=== PATIENT | female | born 1945 | race Caucasian/White ===

== ENCOUNTER 2016-08-02 18:45 | Emergency (ER) | payer OTHER ==
[2016-08-02] MEDS ORDERED: DUONEB (A & A) INH ONE (18:49)
[2016-08-02] MEDS ORDERED: ZOFRAN ODT PO ONE (18:50)
--- NOTE | 2016-08-02 18:54 | PROVIDER DOCUMENTATION ---
HPI-Respiratory General - General Chief Complaint: Choking Stated Complaint: CHOKING Time Seen by Provider: 08/02/16 18:45 Source: patient, EMS Allergies/Adverse Reactions: Patient Allergies Allergy/AdvReac Type Severity Reaction Status Date / Time No Known Allergies Allergy Verified 08/02/16 18:49 Home Medications: Home Medication List Medication Instructions Recorded Confirmed Last Taken Type ATORVAstatin [Lipitor] 10 mg PO DAILY 11/17/12 08/02/16 08/02/16 History Aspirin 81 mg PO DAILY 11/17/12 08/02/16 08/02/16 History Diltiazem C.d. [Cardizem Cd] 240 mg PO DAILY 11/17/12 08/02/16 08/02/16 History Duloxetine [Cymbalta] 30 mg PO DAILY 11/17/12 08/02/16 08/02/16 History Levothyroxine [Synthroid] 25 microgm PO DAILY 11/17/12 08/02/16 08/02/16 History Divalproex [Depakote Sprinkle] 250 mg PO TID #0 capsule 08/04/13 08/02/16 Rx Hydrocodone/APAP 5 mg/325 mg 1 each PO Q6H PRN PRN #0 tablet 08/04/13 08/02/16 08/02/16 Rx [Brick-5] Clonazepam [Klonopin] 0.5 mg PO TID 05/11/16 08/02/16 08/02/16 History Cyclobenzaprine [Flexeril] 5 mg PO TID 05/11/16 08/02/16 08/02/16 History Guaifenesin/Codeine Phosphate 10 ml PO Q4HR PRN #120 liquid 05/11/16 08/02/16 Rx [Cheratussin AC Syrup] Levofloxacin [Levaquin] 750 mg PO DAILY #7 tablet 05/11/16 08/02/16 08/02/16 Rx Mirtazapine 15 mg PO PRN PRN 05/11/16 08/02/16 08/02/16 History - History of Present Illness-Resp Nature of Presenting Problem: Pt is a 71 yof who 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 EMS reports that pt was eating a barbeque sandwich and started choking. EMS reports that they were able to get the patient to cough up some food particles and did not have to do any suction. Pt has hx of HTN, stroke, and dementia and was mildly altered, but EMS reports is her baseline. On exam, pt was A/Ox3 and complains of trouble on deep inspiration and a sore chest from family/firefighters attempting to dislodge the food. On exam, pt was in mild distress, but was not choking and was able to drink 2 ounces of water without choking. Quality of Pain: reports: aching Severity in ED: reports: moderate Onset/Duration: reports: just prior to arrival Timing: reports: improving Context: reports: aspiration/choking Cough Quality/Degree: reports: severe Episode Frequency: rare episodes Associated Symptoms: reports: chest pain/soreness, cough, hurts to breathe, shortness of breath, short of breath, wheezing. denies: dizziness, earache, facial pain, fever/chills, flu-like symptoms, headache, heart racing, hyperventilating, lightheadedness, muscle/bodyaches, nasal congestion, nasal drainage, sinus pain, sore throat, sweaty Review of Systems - Adult - REVIEW OF SYSTEMS - ADULT Constitutional: denies: chills, fever, fatique, night sweats, weight gain, weight loss Eyes: reports: no symptoms reported Ears, Nose, Mouth & Throat: denies: epistaxis, sinus problem, mouth swelling, hoarseness, throat pain, throat swelling Cardiovascular: reports: chest pain. denies: edema, heart murmur, irregular heart rate, orthopnea, palpitations, poor circulation, PND, syncope Respiratory: reports: cough, dyspnea on exertion. denies: chronic cough, excessive sputum production, hemoptysis, pleurisy, shortness of breath, wheezing Gastrointestinal: reports: difficulty swallowing. denies: abdominal pain, hematemesis, constipation, diarrhea, frequent heartburn, nausea, poor appetite, rectal bleeding, vomiting Genitourinary: reports: no symptoms reported Musculoskeletal: reports: muscle aches (anterior chest wall tender). denies: bone pain, back pain, frequent leg cramps, joint pain, joint swelling, muscle weakness, neck pain Integumentary: reports: no symptoms reported Neurological: reports: no symptoms reported Psychiatric: reports: no symptoms reported Endocrine: reports: no symptoms reported Hematologic/Lymphatic: reports: no symptoms reported Allergic/Immunologic: reports: no symptoms reported All Other Systems: Reviewed and Negative Past History - Adult - PAST MEDICAL HISTORY-ADULT Review of Records: reports: Nursing Assessment Review, Medications Reviewed - IMMUNIZATION STATUS Childhood Immunizations: See Nurse Assessment Flu Vaccine: See Nurse Assessment Physical Exam-General - PHYSICAL EXAM-ADULT Initial Vital Signs Reviewed: Yes - CONSTITUTIONAL General Appearance: appears well, alert, mild distress, lethargic, slow to respond. negative: no apparent distress, moderate distress, severe distress, cachetic, obese, thin, anxious, obtunded, combative - HEAD, EARS, NOSE, MOUTH & THROAT HENMT: normocephalic/atraumatic, moist mucous membranes, normal ENT inspection, pharyngeal erythema, other (no foreign body in throat). negative: tonsillar exudate, TM abnormal - NECK Neck: non-tender, full range of motion, supple. negative: limited range of motion - RESPIRATORY Respiratory: lungs clear, decreased breath sounds (mild LLL). negative: chest non-tender, normal breath sounds, respiratory distress, wheezing - CARDIOVASCULAR Cardiovascular: normal peripheral pulses, regular rate, rhythm. negative: bradycardia, tachycardia, irregularly irregular - CHEST (BREASTS) Chest/Breast: no masses/lumps, tenderness (L Anterior chest wall tender on palpation). negative: no tenderness - GASTROINTESTINAL (ABDOMEN) Abdominal Exam: normal bowel sounds, non tender, soft. negative: abnormal bowel sounds, distended, tenderness, mass - NEUROLOGIC Neurologic: grossly normal, no motor/sensory deficits. negative: focal weakness , motor weakness, sensory deficit - PSYCHIATRIC Psych/Mental Status: normal mood/affect, normal thought content, normal thought process, oriented x 3, depressed affect (baseline) Progress - PLAN OF CARE/RESULTS Progress/Plan/Lab Results: POC: EKG/Chest X-ray/labs Vital Signs - 24 hr 08/02/16 18:45 Temperature 97.9 F Pulse Rate 92 H Respiratory 19 Rate Blood Pressure 118/67 O2 Sat by Pulse 98 Oximetry Orders Category Date Time Status CHEST-2 VIEWS [RAD] Stat Exams 08/02/16 18:49 Taken CBC WITH DIFF [HEME] Stat Lab 08/02/16 18:40 Completed COMPREHENSIVE METABOLIC PANEL [CHEM] Stat Lab 08/02/16 18:40 Completed TROPONIN T Stat Lab 08/02/16 18:40 Completed Albuterol 2.5MG/Ipratrop 0.5MG [Duoneb (A & A)] Med 08/02/16 18:49 Discontinued 3 ml INH NOW ONE Ondansetron Odt [Zofran Odt] Med 08/02/16 18:50 Discontinued 4 mg PO NOW ONE Aerosol Treatments Routine Oth 08/02/16 18:49 Active Aerosol Treatments Stat Oth 08/02/16 18:49 Active Pulse Oximetry Stat Oth 08/02/16 18:49 Active EKG [EKG] Stat Ther 08/02/16 18:49 Ordered Laboratory Tests 08/02/16 08/02/16 08/02/16 18:40 18:40 18:40 WBC 7.38 RBC 5.00 Hgb 14.9 Hct 45.1 MCV 90.2 MCH 29.8 MCHC 33.0 RDW Std Deviation 12.9 Plt Count 142 MPV 11.3 H Immature Gran % (Auto) 0.4 Neut % (Auto) 53.9 Lymph % (Auto) 31.0 [place] % (Auto) 9.3 Eos % (Auto) 5.0 Baso % (Auto) 0.4 Immature Gran # (Auto) 0.03 Neut # (Auto) 3.97 Lymph # (Auto) 2.29 [place] # (Auto) 0.69 H Eos # (Auto) 0.37 Baso # (Auto) 0.03 Sodium 139 Potassium 4.2 Chloride 101 Carbon Dioxide 24 L Anion Gap 14 BUN 14 Creatinine 0.8 Estimated GFR/1.73 m2 > 60 BUN/Creatinine Ratio 18 Glucose 225 H Calculated Osmolality 285 Calcium 9.3 Total Bilirubin 0.26 AST 22 ALT 7 L Alkaline Phosphatase 59 Troponin T < 0.010 Total Protein 7.0 Albumin 3.6 Globulin 3.4 Albumin/Globulin Ratio 1.1 - EKG 1 Time of EKG reading by physician:: 18:53 EKG Read and Signed by:: Timothy Beach EKG Interpretation (*Must complete 3 of following elements*): Abnormal (L anterior fascicular block; LVH with repolarization abnormality; Cannot rule out Septal infarct, age undetermined) Rate: 85 Rhythm: NSR - XRAY 1 XRAY: Bilateral XRAY Study: Chest Impression: See EMR Report XRAY Interpretation: No rib fx, no acute infiltrates Departure - Departure Time of Disposition Order: 19:43 DIAGNOSIS: Choking Qualifiers: Encounter type: initial encounter Qualified Code(s): T17.308A - Unspecified foreign body in larynx causing other injury, initial encounter Disposition: HOME 01 Certified Medical Emergency: Emergent Condition: Stable Additional Instructions: ED Follow Up Instructions: You have been treated by a care provider in the Emergency Department. These instructions are being provided to you so you can have an understanding of how to care for yourself upon discharge. Upon discharge from the Emergency Department, you are responsible for making arrangements for follow-up care by a physician of your choice. Take all prescribed medications as directed. Return to the Emergency Department immediately for any new or worsening symptoms. You may call the Physician Referral phone number at [phone] to obtain a list of Physicians who are taking new patients. Attestation - Scribe Verification/Attestation Scribe:: David Blackwood Acting as Scribe for:: Timothy Beach Scribe documention review:: This chart was documented by a scribe and accurately reflects the service the provider performed and the decisions made by the provider.
[2016-08-02 18:55] LABS: MANUAL DIFF NEEDED? NO
[2016-08-02 19:02] LABS: BASO% 0.4 % (0.0-0.8); EOS# 0.37 X1000 (0.0-0.7); HEMATOCRIT 45.1 % (37.0-47.0); HEMOGLOBIN 14.9 g/dL (12.0-16.0); IMM GRAN# 0.03 X1000 (0.0-0.04); IMM GRAN% 0.4 % (0.0-0.5); LYMPH# 2.29 X1000 (1.2-3.4); MCH 29.8 PG (27-31); MCV 90.2 FL (81-99); MONO# 0.69 X1000 (0.11-0.59); MONO% 9.3 % (1.7-9.3); MPV 11.3 FL (7.4-10.4); NEUT% 53.9 % (42.2-75.2); PLT 142 X1000 (130-400)
[2016-08-02 19:22] LABS: AGAP 14; ALBUMIN 3.6 g/dL (3.5-5.0); ALKALINE PHOSPHATASE 59 U/L (32-104); BUN 14 mg/dL (8-22); CALCIUM 9.3 mg/dL (8.8-10.2); CHLORIDE 101 mmol/L (98-107); COSMO 285; GOT 22 U/L (10-30); GPT 7 U/L (10-36); POTASSIUM 4.2 mmol/L (3.5-5.1); SODIUM 139 mmol/L (136-145); TCO2 24 mmol/L (25-35); TOTAL BILIRUBIN 0.26 mg/dL (0.20-1.00)
[2016-08-03 00:35] VITALS: BP 126/59
--- NOTE | 2016-08-03 09:18 | EKG Report ---
Test Performed on : 08/02/2016 6:53:20 PM Test Reason : CP Blood Pressure : / mmHG Vent. Rate : 085 BPM Atrial Rate : 085 BPM P-R Int : 162 ms QRS Dur : 088 ms QT Int : 388 ms P-R-T Axes : 064 -48 092 degrees QTc Int : 461 ms Normal sinus rhythm. Left anterior fascicular block Left ventricular hypertrophy with repolarization abnormality Cannot rule out Septal infarct , age undetermined Abnormal ECG When compared with ECG of 08-MAY-2016 02:18, Minimal criteria for Septal infarct are now present Unconfirmed Result
--- NOTE | 2016-08-03 10:14 | Diag Imaging Result Document ---
PROCEDURE NAME: CHEST-2 VIEWS - 08/02/2016 CHEST X-RAY 2 VIEWS, 08/02/2016: COMPARISON: 05/11/2016. FINDINGS: Stable mildly low lung volumes. No focal infiltrates, pneumothorax, or pleural effusion. IMPRESSION: Low lung volumes but no acute disease.
== END 2016-08-03 00:47 | disposition home or self-care (01) ==
LOC: EDBD → ED 18:45
DX: T17.328A Food in larynx causing other injury, initial encounter (principal); R94.31 Abnormal electrocardiogram [ECG] [EKG]; R07.89 Other chest pain; R05 Cough; R07.1 Chest pain on breathing; R06.02 Shortness of breath; R06.00 Dyspnea, unspecified; R13.10 Dysphagia, unspecified; Z79.899 Other long term (current) drug therapy; M79.1 Myalgia; R53.83 Other fatigue; I10 Essential (primary) hypertension; F03.90 Unspecified dementia, unspecified severity, without behavioral disturbance, psychotic disturbance, mood disturbance, and anxiety; Z79.82 Long term (current) use of aspirin; Z86.73 Personal history of transient ischemic attack (TIA), and cerebral infarction without residual deficits
CPT/HCPCS: 71020; 80053; 84484; 85025; 93005; 99284